=== PATIENT | male | born 1975 | race Caucasian/White ===

== ENCOUNTER → 2020-03-21 11:25 | Outpatient (BNVA) | payer SELFPAY | PROVIDERS: Visit Provider Nurse Practitioner Family | DX: J06.9 Acute upper respiratory infection, unspecified (principal) | CPT/HCPCS: 87635 ==

== ENCOUNTER 2024-03-06 06:12 | Observation (INO) | payer SELFPAY ==
[2024-03-06] VITALS (17 sets, daily range): BP systolic 128–165; BP diastolic 90–118; PULSE 63–120; RESP 16–18; TEMP 36.3–36.6; O2SAT 94–100; BMI 35.9; BMI 36.3
--- NOTE | 2024-03-06 06:33 | ED_ITS ---
HPI - Abdominal Pain 2 General: Chief Complaint: Abdominal Pain Stated Complaint: sharp pains in stomach Time Seen by Provider: 03/06/24 06:19 History of Present Illness: 49-year-old presents emergency room comp laining of periumbilical pain began overnight. He is had a longstanding umbilical hernia is usually able to reduce it on his own at home. The last 24 hours has not been reducible as it increased discomfort. He denies any vomiting or diarrhea. No fever sweats chills. Associated Symptoms: Denies chills, dysuria and fever(s) Related Data Home Medications Medication Instructions Recorded Confirmed ibuprofen 200 mg tablet 200 mg PO Q6H PRN Pain 03/21/20 03/06/24 cyanocobalamin (B12)-cobamamide 1 joss sublingual DAILY 03/06/24 03/06/24 5,000 mcg-100 mcg sublingual lozenge (B12) fexofenadine 180 mg tablet 180 mg PO DAILY 03/06/24 03/06/24 (Annabella Allergy) glucosamine-chondroitin 250 mg-200 2 tab PO DAILY 03/06/24 03/06/24 mg tablet (Osteo Bi-Flex) dzejeubtdmjo-jhlcixil-sxshd acid 1 cap PO DAILY 03/06/24 03/06/24 400 mcg-vitamin K 40 mcg capsule naproxen sodium 220 mg tablet 220 mg PO BID PRN Pain 03/06/24 03/06/24 (Aleve) Previous Rx's Medication Instructions Recorded docusate sodium 100 mg capsule 100 mg PO BID #14 caps 03/06/24 (Colace) hydrocodone 7.5 mg-acetaminophen 1 tab PO Q6H PRN pain #20 tabs 03/06/24 325 mg tablet polyethylene glycol 3350 17 17 g PO DAILY 7 days #119 grams 03/06/24 gram/dose oral powder (Miralax) Allergies Allergy/AdvReac Type Severity Reaction Status Date / Time No Known Allergies Allergy Verified 03/06/24 06:24 Review of Systems 2 Const: Denies: fever(s) or chills Card: Denies: chest pain Resp: Denies: dyspnea GI: Denies: abdominal pain : Denies: dysuria, urinary frequency or urinary urgency Musc: Denies: neck pain or back pain Skin/Breast: Denies: rash Physical Exam 2 Const: COMMON NORMALS: no acute distress GENERAL APPEARANCE: cooperative and comfortable ORIENTATION/CONSCIOUSNESS: Yes awake, Yes oriented to person, Yes oriented to place and Yes oriented to time HENMT: COMMON NORMALS: normocephalic, atraumatic and hearing grossly normal bilaterally HEAD & SCALP: normocephalic and atraumatic Resp: COMMON NORMALS: normal respiratory effort, No retractions, No use of accessory muscles and clear to auscultation bilaterally AUSCULTATION: clear to auscultation bilaterally Cardio: COMMON NORMALS: regular rate, regular rhythm and No murmurs present (Cardio) RATE: regular rate RHYTHM: regular rhythm GI: COMMON NORMALS: Soft to palpation and No hepatosplenomegaly present A USCULTATION: Yes normoactive bowel sounds PALPATION: Yes Soft to palpation, No Tenderness to palpation present (GI), No Guarding due to palpation present (GI) and Yes No hepatosplenomegaly present OTHER: Incarcerated umbilical hernia. Extremity: COMMON NORMALS: normal to inspection, capillary refill normal, no clubbing, cyanosis or edema, no calf tenderness and no pedal edema Neuro: SENSORIUM/ORIENTATION: Yes oriented to person, Yes oriented to place and Yes oriented to time Skin: COMMON NORMALS: no rashes or lesions noted GENERAL SKIN EXAM: no rashes or lesions noted Course 2 Vital Signs: Vital signs: Vital Signs Temperature 97.3 F L 03/06/24 15:49 Pulse Rate 79 03/06/24 15:49 Respiratory Rate 16 03/06/24 15:49 Blood Pressure 140/96 03/06/24 15:49 Pulse Oximetry 97 03/06/24 15:49 Oxygen Delivery Me thod Room Air 03/06/24 15:14 Oxygen Flow Rate 8 03/06/24 15:04 MDM - Abdominal Pain Medical Decision Making Consult to Dr. Barakat he seen patient is able to get it reduced but recommend surgery patient be taken to outpatient surgery Dr. Barakat states he is anticipating discharge later today. Discussed with patient. Medical Records I reviewed the patient's medical records. Lab Data I reviewed the patient's lab results. 03/06/24 06:35 03/06/24 06:35 Labs/Radiology: Radiology Impressions Abdomen/Pelvis CT 03/06/24 06:45 IMPRESSION: 1. Fat and fluid filled periumbilical hernia defect. Given the inflammatory change involving the fat extending into the hernia defect, the fat may be strangulated. 2. Fatty infiltration of the liver. Laboratory Results WBC 6.68 10^3/uL (3.29-11.43) 03/06/24 06:35 RBC 5.14 10^6/uL (3.85-5.65) 03/06/24 06:35 Hgb 14.70 g/dL (11.27-16.99) 03/06/24 06:35 Hct 43.0 % (37-53) 03/06/24 06:35 MCV 83.7 fl (82-101) 03/06/24 06:35 MCH 28.6 pg (27-33) 03/06/24 06:35 MCHC 34.2 g/dL (30-55) 03/06/24 06:35 RDW 12.4 % (12.1-15.1) 03/06/24 06:35 Plt Count 286 10^3/cmm (157-399) 03/06/24 06:35 MPV 9.3 fL (7.4-10.4) 03/06/24 06:35 Neut % (Auto) 61.8 % 03/06/24 06:35 Lymph % (Auto) 27.2 % 03/06/24 06:35 Smyth % (Auto) 7.3 % 03/06/24 06:35 Eos % (Auto) 3.0 % 03/06/24 06:35 Baso % (Auto) 0.6 % 03/06/24 06:35 Neut # (Auto) 4.12 10^3/uL (1.8-7.7) 03/06/24 06:35 Lymph # (Auto) 1.8 10^3/uL (0.8-4.8) 03/06/24 06:35 Smyth # (Auto) 0.5 10^3/uL (0.2-0.9) 03/06/24 06:35 Eos # (Auto) 0.2 10^3/uL (0.0-0.8) 03/06/24 06:35 Baso # (Auto) 0.0 10^3/uL (0.0-0.1) 03/06/24 06:35 Nucleated RBC % (auto) 0 % 03/06/24 06:35 Nucleated RBCs # 0.0 /100WBC 03/06/24 06:35 Sodium 135 mmol/L (136-145) L 03/06/24 06:35 Potassium 4.3 mmol/L (3.5-5.1) 03/06/24 06:35 Chloride 101 mmol/L (98-107) 03/06/24 06:35 Carbon Dioxide 23 mmol/L (22-29) 03/06/24 06:35 Anion Gap 15.3 (5-19) 03/06/24 06:35 BUN 21 mg/dL (6-20) H 03/06/24 06:35 Creatinine 0.8 mg/dL (0.7-1.2) 03/06/24 06:35 GFR Calculation 103.6 mL/min (90-130) 03/06/24 06:35 Glucose 106 mg/dL (65-115) 03/06/24 06:35 Calculated Osmolality 283 mOsm/kg (285-295) L 03/06/24 06:35 Lactic Acid 1.5 mmol/L (0.5-2.2) 03/06/24 06:35 Calcium 9.4 mg/dL (8.5-10.5) 03/06/24 06:35 Total Bilirubin 0.4 mg/dL (0.15-1.2) 03/06/24 06:35 AST 22 U/L (0-40) 03/06/24 06:35 ALT 32 U/L (0-41) 03/06/24 06:35 Alkaline Phosphatase 61 U/L (40-130) 03/06/24 06:35 Total Protein 7.5 g/dL (6.6-8.7) 03/06/24 06:35 Albumin 4.4 g/dL (3.5-5.2) 03/06/24 06:35 Globulin 3.1 g/dL (1.3-4.6) 03/06/24 06:35 Lipase 59 U/L (13-60) 03/06/24 06:35 Urine Color Yellow (Yellow) 03/06/24 06:50 Urine Appearance Clear (CLEAR) 03/06/24 06:50 Urine pH 5.0 (5-7) 03/06/24 06:50 Ur Specific [place] 1.014 (1.005-1.030) 03/06/24 06:50 Urine Protein Negative (Negative) 03/06/24 06:50 Urine Glucose (UA) Negative (Normal) 03/06/24 06:50 Urine Ketones Negative (Negative) 03/06/24 06:50 Urine Blood Negative (Negative) 03/06/24 06:50 Urine Nitrate Negative (Negative) 03/06/24 06:50 Urine Bilirubin Negative (Negative) 03/06/24 06:50 Urine Urobilinogen 0.2 mg/dL (Negative) 03/06/24 06:50 Ur Leukocyte Esterase Negative (Negative) 03/06/24 06:50 Urine RBC 0-2 /hpf (0-2) 03/06/24 06:50 Urine WBC 0-5 /hpf (0-5) 03/06/24 06:50 Ur Squamous Epith Cells 0-5 /hpf (0-5) 03/06/24 06:50 Amorphous Sediment Not Reportable 03/06/24 06:50 Urine Bacteria None seen /hpf (NONE) 03/06/24 06:50 Hyaline Casts 0-4 /lpf H 03/06/24 06:50 All radiology interpretation(s) finalized by discharge Discharge Plan Discharge Patient Disposition: Admitted As Inpatient Admit Provider: Kiran Barakat Clinical Impression: Incarcerated umbilical hernia Condition: Stable Coding Level of Care Code ED Email Deployment Specialist for Jose Juan Lo
[2024-03-06 06:45] LABS: Basophils % 0.6 %; Eosinophils # 0.2 10^3/uL (0.0-0.8); Lymphocytes # 1.8 10^3/uL (0.8-4.8); Lymphocytes % 27.2 %; Mean Corpuscular HGB Conc 34.2 g/dL (30-55); Mean Corpuscular Hemoglobin 28.6 pg (27-33); Mean Corpuscular Volume 83.7 fl (82-101); Mean Platelet Volume 9.3 fL (7.4-10.4); Monocytes # 0.5 10^3/uL (0.2-0.9); Monocytes % 7.3 %; Neutrophils # 4.12 10^3/uL (1.8-7.7); Neutrophils % 61.8 %; Nucleated Red Blood Cells % 0 %; Platelet Count 286 10^3/cmm (157-399); Red Blood Count 5.14 10^6/uL (3.85-5.65); Red Cell Distribution Width 12.4 % (12.1-15.1); White Blood Count 6.68 10^3/uL (3.29-11.43)
--- NOTE | 2024-03-06 06:45 | CTR_ITS ---
PROCEDURE INFORMATION: Exam: CT Abdomen And Pelvis Without Contrast Exam date and time: 03/06/2024 7:02 AM Age: 49 years old Clinical indication: Mass, lump, or swelling; Epigastric; Abdominal pain TECHNIQUE: Imaging protocol: Computed tomography of the abdomen and pelvis without contrast. Radiation optimization: All CT scans at this facility use at least one of these dose optimization techniques: automated exposure control; mA and/or kV adjustment per patient size (includes targeted exams where dose is matched to clinical indication); or iterative reconstruction. COMPARISON: CR XR chest 1V [id number] 03/21/2019 6:08 AM RADIATION DOSE METRICS: Total DLP (mGy-cm): 1328 FINDINGS: Lungs: Lung bases are clear as visualized. Liver: There is diffuse fatty infiltration of the liver. The liver is otherwise normal. Gallbladder and biliary ducts: Normal. No calcified stones. No ductal dilation. Pancreas: Normal. No ductal dilation. Spleen: Normal. No splenomegaly. Adrenal glands: Normal. No mass. Kidneys and ureters: Normal. No hydronephrosis. Stomach and bowel: There are scattered colonic diverticula. No large bowel wall thickening is appreciated. No dilated loops of large or small bowel is appreciated. Appendix: No evidence of appendicitis. Intraperitoneal space: Unremarkable. No free air. No significant fluid collection. Vasculature: Unremarkable. No abdominal aortic aneurysm. Lymph nodes: Unremarkable. No enlarged lymph nodes. Urinary bladder: Unremarkable as visualized. Reproductive: Unremarkable as visualized. Bones/joints: Unremarkable. No acute fracture. Soft tissues: There is a periumbilical hernia defect which measures 3.4 cm in transverse dimension. Fat extends into the hernia defect as well as a small amount of fluid. There is stranding involving the fat extending of the hernia defect suggesting possibility of strangulated fat. CT/CT abdomen pelvis wo con [id number] IMPRESSION: 1. Fat and fluid filled periumbilical hernia defect. Given the inflammatory change involving the fat extending into the hernia defect, the fat may be strangulated. 2. Fatty infiltration of the liver.
[2024-03-06 07:05] LABS: Bilirubin Urine Negative (Negative); Blood Urine Negative (Negative); Glucose Urine UA Negative (Normal); Ketones Urine Negative (Negative); Leukocyte Esterase Urine Negative (Negative); Nitrate Urine Negative (Negative); Protein Urine Negative (Negative); Specific Gravity, Urine 1.014 (1.005-1.030); Urine Appearance Clear (CLEAR); Urine Color Yellow (Yellow); Urobilinogen Urine 0.2 mg/dL (Negative)
[2024-03-06 07:07] LABS: Lactic Sepsis W/Reflex 1.5 mmol/L (0.5-2.2)
[2024-03-06 07:08] LABS: Alanine Aminotransferase 32 U/L (0-41); Albumin Level 4.4 g/dL (3.5-5.2); Alkaline Phosphatase 61 U/L (40-130); Anion Gap 15.3 (5-19); Aspartate Amino Transferase 22 U/L (0-40); Blood Urea Nitrogen 21 mg/dL (6-20); Calcium 9.4 mg/dL (8.5-10.5); Carbon Dioxide 23 mmol/L (22-29); Chloride 101 mmol/L (98-107); Creatinine Clr Calc Pharmacy 152.8055; Globulin 3.1 g/dL (1.3-4.6); Glomerular Filtration Rate 103.6 mL/min (90-130); Glucose 106 mg/dL (65-115); Lipase 59 U/L (13-60); Osmolality Calculated 283 mOsm/kg (285-295); Potassium 4.3 mmol/L (3.5-5.1); Sodium 135 mmol/L (136-145); Total Bilirubin 0.4 mg/dL (0.15-1.2); Total Protein 7.5 g/dL (6.6-8.7)
[2024-03-06 07:09] LABS: Add Urine Microscopic? YES; Bacteria Urine None Seen /hpf; Hyaline Casts Urine 0-4 /lpf; RBC Urine 0-2 /hpf (0-2); Squamous Epithelial Cell Urine 0-5 /hpf (0-5); WBC Urine 0-5 /hpf (0-5)
[2024-03-06] MEDS: sodium chloride 0.9% 1,000 ML 125 ML IV (12:03)
--- NOTE | 2024-03-06 12:50 | P.HP_ITS ---
Providers/Chief Complaint 2 Admitting Physician: Kiran Barakat DO Chief Complaint: sharp pains in stomach History of Present Illness Martinez Amezquita is a 49 year old male presented to the hospital with abdominal pain. His pain was located at his umbilicus and was sharp and constant. The pain did not radiate. Palpation and lifting made the pain worse. Has made the pain better. He had a noticeable umbilical bulge for approximately the past year. It caused him pain with lifting. Usually he could reduce the bulge but he was unable to for the past [address] the abdomen pelvis shows an incarcerated umbilical hernia containing omentum Review of Systems 2 General: Reports: 10 or more systems reviewed and unremarkable except in HPI and below Medications/Allergies Home Medications Medication Instructions Recorded Confirmed Last Taken Type ibuprofen 200 mg tablet 200 mg PO Q6H PRN Pain 03/21/20 03/06/24 Unknown History cyanocobalamin (B12)-cobamamide 1 joss sublingual DAILY 03/06/24 03/06/24 03/01/24 History 5,000 mcg-100 mcg sublingual lozenge (B12) fexofenadine 180 mg tablet 180 mg PO DAILY 03/06/24 03/06/24 Unknown History (Annabella Allergy) glucosamine-chondroitin 250 mg-200 2 tab PO DAILY 03/06/24 03/06/24 03/01/24 History mg tablet (Osteo Bi-Flex) bjyizpinmezh-yexmfvmj-xcesd acid 1 cap PO DAILY 03/06/24 03/06/24 03/01/24 History 400 mcg-vitamin K 40 mcg capsule naproxen sodium 220 mg tablet 220 mg PO BID PRN Pain 03/06/24 03/06/24 Unknown History (Aleve) Allergies Allergy/AdvReac Type Severity Reaction Status Date / Time No Known Allergies Allergy Verified 03/06/24 06:24 Vitals/I&O/Wt Last Vital Signs Temp 97.5 F L 03/06/24 06:19 Pulse 92 03/06/24 11:41 Resp 16 03/06/24 11:41 BP 136/90 03/06/24 11:41 Pulse Ox 98 03/06/24 11:41 O2 Del Method Room Air 03/06/24 11:22 Weight last 48 hrs Weight 268 lb 6 oz Weight 265 lb Physical Exam 2 Narrative: General : Patient is well developed , no acute distress, oriented x3 Head : Normal cephalic, a-traumatic. Ears : Pinnae and external canal are normal. Hearing is normal. Eyes : PERRLA, Sclera and injection are normal. No conjunctival discharge. Nose : Mucous membranes are without erythema. Throat : buccal mucosa is normal, gums are without significant recession or hypertrophy. Lungs : Equal chest rise bilaterally, no use of accessory muscles, trachea is midline. Cor : Rate and rhythm are normal. Abdomen : Soft, ND, tender to palpation over an incarcerated umbilical hernia. There is some overlying erythema, clinical defect is 3.5 cm in diameter, no g/r/m Extremities : No edema, no cyanosis or clubbing, dorsalis pedis pulses are present bilaterally, non-tender to palpation of calves. Upper extremities are normal bilaterally. Back : non-tender to palpation, no CVA tenderness. Neuro : CN II - XII intact, Upper and lower extremities have equal and full strength Data 03/06/24 06:35 03/06/24 06:35 A&P Assessment and plan (1) Incarcerated umbilical hernia: Plan Laparoscopic incarcerated umbilical hernia repair with mesh The risks and benefits of the procedure, including but not limited to, bleeding, infection, mesh infection requiring mesh excision antibiotic therapy and repeat surgery, damage surrounding structures, conversion to an open procedure, scar, numbness, pain, and/or recurrence were explained to the patient. Patient is understanding of the risks and wishes to proceed. Attestations 2 Medical Necessity Statement*: Patient will likely be sent home after hernia is reduced and repaired Coding Level of Care Code 49880 Diagnoses Incarcerated umbilical hernia K42.0
--- NOTE | 2024-03-06 13:07 | PC.NURSE ---
Pt to OR at this time
[2024-03-06] MEDS: sodium chloride 0.9% 1,000 ML 30 ML IV (13:38)
--- NOTE | 2024-03-06 13:40 | P.ANESASSM_ITS ---
Pre-Anesthetic Assessment Height/Weight: Height 1.83 m Weight 121.733 kg Temp Pulse Resp BP Pulse Ox O2 Del Method 97.9 F 66 18 141/97 97 Room Air 03/06/24 13:05 03/06/24 13:05 03/06/24 13:05 03/06/24 13:05 03/06/24 13:05 03/06/24 13:05 Operation Date: 03/06/24 13:35 Proposed Procedures p Laparoscopic incarcerated Umbilical Hernia with Repair/Mesh(Not Applicable) - Kiran Barakat DO Familial anesthetic complications: None Was Beta Alpesh taken within 24 hours: N/A Was Clonidine taken within 24 hours: N/A Last intake: Intake Last Liquid Date 03/06/24 Last Liquid Time 05:30 Last Solid Date 03/05/24 Last Solid Time 18:00 Social No alcohol and No tobacco Exam alert, oriented x 3, clear to auscultation bilaterally and regular rate & rhythm Airway Mallampati: Class IV Dentition: full Anesthetic Plan ASA status: 2 Anesthesia: General Risk of > 500 ml blood loss (7ml/kg in children): No Medications/Allergies Home Medications Medication Instructions Recorded Confirmed Last Taken Type ibuprofen 200 mg tablet 200 mg PO Q6H PRN Pain 03/21/20 03/06/24 Unknown History cyanocobalamin (B12)-cobamamide 1 joss sublingual DAILY 03/06/24 03/06/24 03/01/24 History 5,000 mcg-100 mcg sublingual lozenge (B12) fexofenadine 180 mg tablet 180 mg PO DAILY 03/06/24 03/06/24 Unknown History (Annabella Allergy) glucosamine-chondroitin 250 mg-200 2 tab PO DAILY 03/06/24 03/06/24 03/01/24 History mg tablet (Osteo Bi-Flex) yngyewhtvsxn-fjymyglz-lzhmm acid 1 cap PO DAILY 03/06/24 03/06/24 03/01/24 History 400 mcg-vitamin K 40 mcg capsule naproxen sodium 220 mg tablet 220 mg PO BID PRN Pain 03/06/24 03/06/24 Unknown History (Aleve) Allergies Allergy/AdvReac Type Severity Reaction Status Date / Time No Known Allergies Allergy Verified 03/06/24 06:24 Current Medications Generic Name Dose Route Start Last Admin Trade Name Freq PRN Reason Stop Dose Admin Sodium Chloride 1,000 mls @ 125 mls/hr 03/06/24 11:39 03/06/24 12:03 Sodium Chloride 0.9% IV 125 mls/hr .Q8H INGRIS Administration Sodium Chloride 1,000 mls @ 30 mls/hr 03/06/24 13:30 03/06/24 13:38 Sodium Chloride 0.9% IV 03/07/24 13:29 30 mls/hr .Q24H INGRIS Administration Data Anesthesia 03/06/24 06:35 03/06/24 06:35 Short CBC 03/06/24 Range/Units 06:35 WBC 6.68 (3.29-11.43) 10^3/uL Hgb 14.70 (11.27-16.99) g/dL Hct 43.0 (37-53) % MCV 83.7 (82-101) fl Plt Count 286 (157-399) 10^3/cmm Neut % (Auto) 61.8 % Neut # (Auto) 4.12 (1.8-7.7) 10^3/uL BMP 03/06/24 06:35 Sodium 135 L Potassium 4.3 Chloride 101 Carbon Dioxide 23 BUN 21 H Creatinine 0.8 Glucose 106 Calcium 9.4 Liver Function 03/06/24 Range/Units 06:35 Total Bilirubin 0.4 (0.15-1.2) mg/dL AST 22 (0-40) U/L ALT 32 (0-41) U/L Alkaline Phosphatase 61 (40-130) U/L Albumin 4.4 (3.5-5.2) g/dL Urine 03/06/24 Range/Units 06:50 Urine Color Yellow (Yellow) Urine Appearance Clear (CLEAR) Urine pH 5.0 (5-7) Ur Specific [place] 1.014 (1.005-1.030) Urine Protein Negative (Negative) Urine Glucose (UA) Negative (Normal) Urine Ketones Negative (Negative) Urine Nitrate Negative (Negative) Urine Bilirubin Negative (Negative) Ur Leukocyte Esterase Negative (Negative) Urine RBC 0-2 (0-2) /hpf Urine WBC 0-5 (0-5) /hpf Cardiac Studies: 2 No Data to Display
--- NOTE | 2024-03-06 13:49 | P.ANESASSM_ITS ---
Pre-Anesthetic Assessment Height/Weight: Height 1.83 m Weight 121.733 kg Temp Pulse Resp BP Pulse Ox O2 Del Method 97.9 F 66 18 141/97 97 Room Air 03/06/24 13:05 03/06/24 13:05 03/06/24 13:05 03/06/24 13:05 03/06/24 13:05 03/06/24 13:05 Operation Date: 03/06/24 13:35 Proposed Procedures p Laparoscopic incarcerated Umbilical Hernia with Repair/Mesh(Not Applicable) - Kiran Barakat DO Familial anesthetic complications: None Was Beta Alpesh taken within 24 hours: N/A Was Clonidine taken within 24 hours: N/A Last intake: Intake Last Liquid Date 03/06/24 Last Liquid Time 05:30 Last Solid Date 03/05/24 Last Solid Time 18:00 Social No alcohol and No tobacco Exam alert, oriented x 3, clear to auscultation bilaterally and regular rate & rhythm Airway Dentition: full Metabolic Morbid Obesity Anesthetic Plan ASA status: 2 Anesthesia: General Risk of > 500 ml blood loss (7ml/kg in children): No Medications/Allergies Home Medications Medication Instructions Recorded Confirmed Last Taken Type ibuprofen 200 mg tablet 200 mg PO Q6H PRN Pain 03/21/20 03/06/24 Unknown History cyanocobalamin (B12)-cobamamide 1 joss sublingual DAILY 03/06/24 03/06/24 03/01/24 History 5,000 mcg-100 mcg sublingual lozenge (B12) fexofenadine 180 mg tablet 180 mg PO DAILY 03/06/24 03/06/24 Unknown History (Annabella Allergy) glucosamine-chondroitin 250 mg-200 2 tab PO DAILY 03/06/24 03/06/24 03/01/24 History mg tablet (Osteo Bi-Flex) qjnshwhvylbi-lwiazloj-edwqt acid 1 cap PO DAILY 03/06/24 03/06/24 03/01/24 History 400 mcg-vitamin K 40 mcg capsule naproxen sodium 220 mg tablet 220 mg PO BID PRN Pain 03/06/24 03/06/24 Unknown History (Aleve) Allergies Allergy/AdvReac Type Severity Reaction Status Date / Time No Known Allergies Allergy Verified 03/06/24 06:24 Current Medications Generic Name Dose Route Start Last Admin Trade Name Freq PRN Reason Stop Dose Admin Sodium Chloride 1,000 mls @ 125 mls/hr 03/06/24 11:39 03/06/24 12:03 Sodium Chloride 0.9% IV 125 mls/hr .Q8H INGRIS Administration Sodium Chloride 1,000 mls @ 30 mls/hr 03/06/24 13:30 03/06/24 13:38 Sodium Chloride 0.9% IV 03/07/24 13:29 30 mls/hr .Q24H INGRIS Administration Data Anesthesia 03/06/24 06:35 03/06/24 06:35 Short CBC 03/06/24 Range/Units 06:35 WBC 6.68 (3.29-11.43) 10^3/uL Hgb 14.70 (11.27-16.99) g/dL Hct 43.0 (37-53) % MCV 83.7 (82-101) fl Plt Count 286 (157-399) 10^3/cmm Neut % (Auto) 61.8 % Neut # (Auto) 4.12 (1.8-7.7) 10^3/uL BMP 03/06/24 06:35 Sodium 135 L Potassium 4.3 Chloride 101 Carbon Dioxide 23 BUN 21 H Creatinine 0.8 Glucose 106 Calcium 9.4 Liver Function 03/06/24 Range/Units 06:35 Total Bilirubin 0.4 (0.15-1.2) mg/dL AST 22 (0-40) U/L ALT 32 (0-41) U/L Alkaline Phosphatase 61 (40-130) U/L Albumin 4.4 (3.5-5.2) g/dL Urine 03/06/24 Range/Units 06:50 Urine Color Yellow (Yellow) Urine Appearance Clear (CLEAR) Urine pH 5.0 (5-7) Ur Specific [place] 1.014 (1.005-1.030) Urine Protein Negative (Negative) Urine Glucose (UA) Negative (Normal) Urine Ketones Negative (Negative) Urine Nitrate Negative (Negative) Urine Bilirubin Negative (Negative) Ur Leukocyte Esterase Negative (Negative) Urine RBC 0-2 (0-2) /hpf Urine WBC 0-5 (0-5) /hpf Cardiac Studies: 2 No Data to Display
[2024-03-06] MEDS: piperacillin-tazobactam 3.375 GM in sodium chloride 0.9% (plus) 50 ML IV (13:52)
[2024-03-06] MEDS: lidocaine 1% 10 ML INJ 20 ML INJECTION (14:05)
--- NOTE | 2024-03-06 14:40 | PM.OP ---
Operative Report Date of procedure: March 06, 2024 Pre-op diagnosis: Incarcerated umbilical hernia Post-op diagnosis: same Procedure done: Laparoscopic repair of incarcerated umbilical hernia with mesh 4 cm Implants: 6 inch round Ventralight mesh Specimens removed/disposition: Hernia sac Surgeon: Kiran Barakat DO Anesthesia: General and Local Estimated blood loss (mL): 5 Complications: None apparent Brief History: This is a very pleasant 49-year-old gentleman who presented to the hospital with an incarcerated umbilical hernia. Laparoscopic repair with mesh was indicated. The risks and benefits were explained and documented. Procedure: Patient was wheeled into the operative room and placed on the OR table in a supine position. Abdomen was inspected prepped and draped in usual sterile fashion. Time-out was performed and all present were in agreement. A 15 blade scalp was used to make a 5 millimeter incision left upper quadrant. A Veress needle was placed into the incision and intra-abdominal insufflation was brought to 15 millimeters of mercury. A 12 millimeter trocar was placed into the left lower quadrant. The energy but device was then used to cut out the hernia sac. Omentum was manually reduced and pulled from inside the abdomen back into the abdomen. Hernia defect measured for centimeters in diameter. A 6 inch ventral light mesh was placed into the abdomen and brought up through the umbilicus using an the Sadi-Nathanael. The mesh was then tacked in place in a double crown fashion. The skeleton of the mesh was removed via the left lower quadrant. The hernia sac was then removed from the abdomen via the left lower quadrant. The hernia sac was quite large and this incision had to be extended somewhat. The left lower quadrant port site was closed with an 0 Vicryl suture in a Sadi-Nathanael in a [id number] fashion. Incisions were closed with 4 O Vicryl in a subcuticular interrupted fashion. Skin glue was applied. A dressing that included cotton balls and a Tegaderm was placed over the umbilicus. Patient tolerated the procedure well.
--- NOTE | 2024-03-06 14:44 | PM.DCS ---
Discharge Providers Date of Admission: 03/06/24 11:14 Date of Discharge: March 06, 2024 Attending Provider at Admission: Kiran Barakat DO Attending Provider at Discharge: Kiran Barakat DO Diagnoses at Discharge Discharge Diagnosis (1) Incarcerated umbilical hernia: Status: Resolved Reason for Visit Reason for Visit: sharp pains in stomach Hospital Course Hospital Course This is a very pleasant 49-year-old gentleman who presented to the hospital with an incarcerated umbilical hernia. Laparoscopic repair with mesh was performed. He tolerated procedure well and was discharged home the same day in good condition Physical Exam Narrative: General : Patient is well developed , no acute distress, oriented x3 Head : Normal cephalic, a-traumatic. Ears : Pinnae and external canal are normal. Hearing is normal. Eyes : PERRLA, Sclera and injection are normal. No conjunctival discharge. Nose : Mucous membranes are without erythema. Throat : buccal mucosa is normal, gums are without significant recession or hypertrophy. Lungs : Equal chest rise bilaterally, no use of accessory muscles, trachea is midline. Cor : Rate and rhythm are normal. Abdomen : Soft, ND, appropriately tender, no g/r/m Extremities : No edema, no cyanosis or clubbing, dorsalis pedis pulses are present bilaterally, non-tender to palpation of calves. Upper extremities are normal bilaterally. Back : non-tender to palpation, no CVA tenderness. Neuro : CN II - XII intact, Upper and lower extremities have equal and full strength Discharge Data Studies Completed and Pending Completed Studies During Hospitalization Category Date Time Status CT abdomen pelvis wo con [id number] Stat Cat Scan 03/06/24 06:45 Completed Pending at discharge Category Date Time Status Pathology: Surgical [PTH] Routine Pth 03/06/24 14:35 Ordered Radiology Impressions Abdomen/Pelvis CT 03/06/24 06:45 IMPRESSION: 1. Fat and fluid filled periumbilical hernia defect. Given the inflammatory change involving the fat extending into the hernia defect, the fat may be strangulated. 2. Fatty infiltration of the liver. Laboratory Results WBC 6.68 10^3/uL (3.29-11.43) 03/06/24 06:35 RBC 5.14 10^6/uL (3.85-5.65) 03/06/24 06:35 Hgb 14.70 g/dL (11.27-16.99) 03/06/24 06:35 Hct 43.0 % (37-53) 03/06/24 06:35 MCV 83.7 fl (82-101) 03/06/24 06:35 MCH 28.6 pg (27-33) 03/06/24 06:35 MCHC 34.2 g/dL (30-55) 03/06/24 06:35 RDW 12.4 % (12.1-15.1) 03/06/24 06:35 Plt Count 286 10^3/cmm (157-399) 03/06/24 06:35 MPV 9.3 fL (7.4-10.4) 03/06/24 06:35 Neut % (Auto) 61.8 % 03/06/24 06:35 Lymph % (Auto) 27.2 % 03/06/24 06:35 [place] % (Auto) 7.3 % 03/06/24 06:35 Eos % (Auto) 3.0 % 03/06/24 06:35 Baso % (Auto) 0.6 % 03/06/24 06:35 Neut # (Auto) 4.12 10^3/uL (1.8-7.7) 03/06/24 06:35 Lymph # (Auto) 1.8 10^3/uL (0.8-4.8) 03/06/24 06:35 [place] # (Auto) 0.5 10^3/uL (0.2-0.9) 03/06/24 06:35 Eos # (Auto) 0.2 10^3/uL (0.0-0.8) 03/06/24 06:35 Baso # (Auto) 0.0 10^3/uL (0.0-0.1) 03/06/24 06:35 Nucleated RBC % (auto) 0 % 03/06/24 06:35 Nucleated RBCs # 0.0 /100WBC 03/06/24 06:35 Sodium 135 mmol/L (136-145) L 03/06/24 06:35 Potassium 4.3 mmol/L (3.5-5.1) 03/06/24 06:35 Chloride 101 mmol/L (98-107) 03/06/24 06:35 Carbon Dioxide 23 mmol/L (22-29) 03/06/24 06:35 Anion Gap 15.3 (5-19) 03/06/24 06:35 BUN 21 mg/dL (6-20) H 03/06/24 06:35 Creatinine 0.8 mg/dL (0.7-1.2) 03/06/24 06:35 GFR Calculation 103.6 mL/min (90-130) 03/06/24 06:35 Glucose 106 mg/dL (65-115) 03/06/24 06:35 Calculated Osmolality 283 mOsm/kg (285-295) L 03/06/24 06:35 Lactic Acid 1.5 mmol/L (0.5-2.2) 03/06/24 06:35 Calcium 9.4 mg/dL (8.5-10.5) 03/06/24 06:35 Total Bilirubin 0.4 mg/dL (0.15-1.2) 03/06/24 06:35 AST 22 U/L (0-40) 03/06/24 06:35 ALT 32 U/L (0-41) 03/06/24 06:35 Alkaline Phosphatase 61 U/L (40-130) 03/06/24 06:35 Total Protein 7.5 g/dL (6.6-8.7) 03/06/24 06:35 Albumin 4.4 g/dL (3.5-5.2) 03/06/24 06:35 Globulin 3.1 g/dL (1.3-4.6) 03/06/24 06:35 Lipase 59 U/L (13-60) 03/06/24 06:35 Urine Color Yellow (Yellow) 03/06/24 06:50 Urine Appearance Clear (CLEAR) 03/06/24 06:50 Urine pH 5.0 (5-7) 03/06/24 06:50 Ur Specific [place] 1.014 (1.005-1.030) 03/06/24 06:50 Urine Protein Negative (Negative) 03/06/24 06:50 Urine Glucose (UA) Negative (Normal) 03/06/24 06:50 Urine Ketones Negative (Negative) 03/06/24 06:50 Urine Blood Negative (Negative) 03/06/24 06:50 Urine Nitrate Negative (Negative) 03/06/24 06:50 Urine Bilirubin Negative (Negative) 03/06/24 06:50 Urine Urobilinogen 0.2 mg/dL (Negative) 03/06/24 06:50 Ur Leukocyte Esterase Negative (Negative) 03/06/24 06:50 Urine RBC 0-2 /hpf (0-2) 03/06/24 06:50 Urine WBC 0-5 /hpf (0-5) 03/06/24 06:50 Ur Squamous Epith Cells 0-5 /hpf (0-5) 03/06/24 06:50 Amorphous Sediment Not Reportable 03/06/24 06:50 Urine Bacteria None seen /hpf (NONE) 03/06/24 06:50 Hyaline Casts 0-4 /lpf H 03/06/24 06:50 Procedures Performed Laparoscopic repair of incarcerated umbilical hernia with mesh Vitals Last Vital Signs Temp 97.9 F 03/06/24 13:22 Pulse 65 03/06/24 13:22 Resp 16 03/06/24 13:22 BP 156/113 03/06/24 13:22 Pulse Ox 99 03/06/24 13:22 O2 Del Method Room Air 03/06/24 13:05 Discharge Plan Discharge Patient Disposition: Home Condition: Stable Prescriptions: New hydrocodone-acetaminophen 7.5-325 mg tablet 1 tab PO Q6H PRN (Reason: pain) Qty: 20 0RF Colace 100 mg capsule 100 mg PO BID Qty: 14 0RF Continued Annabella Allergy 180 mg Tablet 180 mg PO DAILY Osteo Bi-Flex 250-200 mg Tablet 2 tab PO DAILY Rx Instructions: give after food/meal B12 5,000-100 mcg Lozenge 1 joss SUBLINGUAL DAILY [id number] acid-vit K 400-40 mcg Capsule 1 cap PO DAILY Held ibuprofen 200 mg tablet 200 mg PO Q6H PRN (Reason: Pain) Hold Instructions: Resume on 03/08/24. Aleve 220 mg Tablet 220 mg PO BID PRN (Reason: Pain) Hold Instructions: Resume on 03/08/24. Discharge Orders: Discharge Order (Routine); Ordered 03/06/24 Ordered By: Kiran Barakat Referrals: Kiran Barakat DO [Physician] - 03/22/24 8:20 am () Patient Instructions: Hydrocodone/Acetaminophen (By mouth), Laxative, Stool Softeners (By mouth), Polyethylene Glycol 3350 (By mouth), Umbilical Hernia (DC), Acute Wound Care (DC), Opioid Safety, Post Anesthesia Care Discharge Attestations Time Spent in Discharge Care*: less than 30 min Quality Metrics Clinical Quality Measures [ No reported AMI, CVA or VTE this stay] Coding Level of Care Code Acute Code for Chg Fwd Diagnoses Incarcerated umbilical hernia K42.0
--- NOTE | 2024-03-06 15:20 | ANE.PACU2 ---
Inpatient post-anesthesia follow up: Airway intact: Yes Vital signs: Temperature 97.3 F Pulse Rate 79 Respiratory Rate 16 Blood Pressure 140/96 Pulse Oximetry 97 Oxygen Delivery Me thod Room Air Oxygen Flow Rate 8 Fraction of Inspir ed Oxygen Hydration adequate: Yes Nausea and vomiting: No Pain level: 1 Mental status: Baseline
--- NOTE | 2024-03-06 15:28 | PC.NURSE ---
Pt returns to room from surgery. Mother at bedside. VSS. Pt has discharge orders. Will discharge pt as soon as he is ready.
--- NOTE | 2024-03-06 16:03 | PC.NURSE ---
Discharge instructions provided to pt and his mother. NO questions or concerns at this time. Pt to private vehicle with all belongings.
== END 2024-03-06 16:04 | disposition home or self-care (01) ==
LOC: ER 10:09 → MEDSURG 11:15
PROVIDERS: Admitting Provider Surgery; Emergency Provider Family Medicine; Visit Provider Surgery
PROC: 0WQF4ZZ Repair Abdominal Wall, Percutaneous Endoscopic Approach (ICD-10-PCS; CPT 49594; principal; 2024-03-06 13:25)
DX: K40.90 Unilateral inguinal hernia, without obstruction or gangrene, not specified as recurrent (principal); E66.01 Morbid (severe) obesity due to excess calories; Z68.36 Body mass index [BMI] 36.0-36.9, adult
CPT/HCPCS: 49594; 74176; 80053; 81001; 83605; 83690; 85025; 88302; 99285; G0378; J0330; J1100; J1170; J1885; J2250; J2405; J2543; J2704; J2710; J3010; J3490; J7030